=== PATIENT | female | born 1965 | race Caucasian/White ===

== ENCOUNTER → 2016-10-17 | Outpatient (CLI) | payer OTHER ==
[~2016-10-17] MED LIST: ALBU2.5V NPPB; DOXY100T PO; GLIM2TAB2 PO; PRED20TA PO
== END | disposition home or self-care (01) ==
LOC: CFH 10:36
PROVIDERS: ATTEND Family Medicine
DX: Z12.31 Encounter for screening mammogram for malignant neoplasm of breast (principal)
CPT/HCPCS: 77063; G0202

== ENCOUNTER 2017-02-18 19:24 | Inpatient (IN) | payer OTHER ==
[~2017-02-18] VITALS: Ht 165.1 cm; Wt 113.0 kg
[2017-02-18] MEDS ORDERED: SODIUM CHLORIDE FLUSH 10ML SYR IVF ONE (20:00)
[2017-02-18] MEDS ORDERED: ALBUTEROL/IPRATROPIUM 2.5MG/0.5MG, 3 ML ONE (20:14)
[2017-02-18 20:30] LABS: HEMOGLOBIN 17.9 g/dL (11.7-16.4); WHITE BLOOD COUNT 7.9 x10^3/uL (3.4-10)
[2017-02-18] MEDS ORDERED: ALBUTEROL/IPRATROPIUM 2.5MG/0.5MG, 3 ML NPPB ONE (20:30)
[2017-02-18] MEDS ORDERED: ASPI325T17 PO (20:31)
[2017-02-18] MEDS ORDERED: GLIM4TAB2 PO (20:31)
[2017-02-18 20:39] LABS: BLOOD UREA NITROGEN 11 mg/dL (7-18)
[2017-02-18 20:44] LABS: ASPARTATE AMINO TRANSFERASE 16 U/L (15-37)
[2017-02-18 20:46] LABS: IS PT STATUS REG ER OR PRE ER? YES
[2017-02-18] MEDS ORDERED: OMNIPAQUE 350 MG/ML, 100ML BOTTLE ONE (21:31)
[2017-02-18] MEDS ORDERED: GUAIFENESIN/DM 200-20MG, 10ML UDC PO PRN (22:30)
[2017-02-18] MEDS ORDERED: ACETAMINOPHEN 650 MG SUPP PR PRN (22:30)
[2017-02-18] MEDS: ALBUTEROL/IPRATROPIUM 2.5MG/0.5MG, 3 ML NPPB SCH (23:00)
[2017-02-18 23:45] VITALS: BP 127/84
[2017-02-19] MEDS ORDERED: LEVOFLOXACIN/PMX 750MG/150ML 150 ML IVPB SCH
[2017-02-19] MEDS: ENOXAPARIN 40 MG/0.4 ML SQ SCH ×2 (00:23→22:50)
[2017-02-19] MEDS: methylPREDNISolone SOD SUCC 40 MG/ML IVPush SCH ×3 (00:23→16:30)
[2017-02-19 01:30] LABS: RAPID INFLUENZA B Negative (Negative)
[2017-02-19 01:32] LABS: RAPID INFLUENZA A POSITIVE (Negative)
[2017-02-19] MEDS: OSELTAMIVIR 75 MG CAPSULE PO SCH ×3 (02:01→22:07)
[2017-02-19] MEDS: ALBUTEROL/IPRATROPIUM 2.5MG/0.5MG, 3 ML NPPB SCH ×6 (03:15→23:00)
[2017-02-19 03:31] VITALS: BP 118/60
[2017-02-19 03:57] LABS: ABG COLLECTION SITE LEFT RADIAL; COLLATERAL CIRCULATION TESTING NORMAL
[2017-02-19 07:53] VITALS: BP 119/74
[2017-02-19] MEDS: SODIUM CHLORIDE FLUSH 10ML SYR IVF SCH ×2 (09:59→21:00)
[2017-02-19] MEDS: INSULIN ASPART 100 UNITS/ML, PEN SQ-INSULIN SCH ×4 (10:00→22:49)
[2017-02-19] MEDS: CEFTRIAXONE PMX 1GM/50ML 50 ML IV SCH (11:52)
[2017-02-19] MEDS: GUAIFENESIN ER 600 MG TABLET PO SCH (12:12)
[2017-02-19] MEDS: DOXYCYCLINE 100 MG in DEXTROSE 5% 250 ML IV SCH (12:54)
[2017-02-19 14:25] VITALS: BP 134/77
[2017-02-19 21:00] VITALS: BP 144/83
[2017-02-20] MEDS: DOXYCYCLINE 100 MG in DEXTROSE 5% 250 ML IV SCH ×2 (00:22→13:12)
[2017-02-20] MEDS: methylPREDNISolone SOD SUCC 40 MG/ML IVPush SCH ×3 (00:25→16:24)
[2017-02-20 01:09] VITALS: BP 146/71
[2017-02-20] MEDS: ALBUTEROL/IPRATROPIUM 2.5MG/0.5MG, 3 ML NPPB SCH ×8 (03:00→23:08)
[2017-02-20 05:51] LABS: BLOOD UREA NITROGEN 15 mg/dL (7-18)
[2017-02-20 05:59] LABS: HEMATOCRIT 48.8 % (34.6-47.8); WHITE BLOOD COUNT 10.3 x10^3/uL (3.4-10)
[2017-02-20 07:48] VITALS: BP 111/75
[2017-02-20] MEDS: OSELTAMIVIR 75 MG CAPSULE PO SCH ×2 (08:22→21:04)
[2017-02-20] MEDS: SODIUM CHLORIDE FLUSH 10ML SYR IVF SCH ×2 (08:22→21:04)
[2017-02-20] MEDS: GUAIFENESIN ER 600 MG TABLET PO SCH ×2 (08:22→21:03)
[2017-02-20] MEDS: INSULIN ASPART 100 UNITS/ML, PEN SQ-INSULIN SCH ×4 (08:27→21:17)
[2017-02-20] MEDS ORDERED: ACETAMINOPHEN 325 MG TABLET PO PRN (09:00)
[2017-02-20] MEDS: CEFTRIAXONE PMX 1GM/50ML 50 ML IV SCH (11:20)
[2017-02-20 12:34] VITALS: BP 133/77
[2017-02-20 18:50] VITALS: BP 130/71
[2017-02-20] MEDS: ENOXAPARIN 40 MG/0.4 ML SQ SCH (21:17)
[2017-02-21] MEDS: methylPREDNISolone SOD SUCC 40 MG/ML IVPush SCH ×3 (00:29→16:30)
[2017-02-21] MEDS: DOXYCYCLINE 100 MG in DEXTROSE 5% 250 ML IV SCH ×2 (00:29→12:30)
[2017-02-21 03:05] VITALS: BP 96/67
[2017-02-21] MEDS: ALBUTEROL/IPRATROPIUM 2.5MG/0.5MG, 3 ML NPPB SCH ×4 (03:11→20:17)
[2017-02-21 06:28] VITALS: BP 127/74
[2017-02-21] MEDS: INSULIN ASPART 100 UNITS/ML, PEN SQ-INSULIN SCH ×4 (07:38→21:56)
[2017-02-21] MEDS: GUAIFENESIN ER 600 MG TABLET PO SCH ×2 (08:49→21:56)
[2017-02-21] MEDS: OSELTAMIVIR 75 MG CAPSULE PO SCH ×2 (08:49→21:56)
[2017-02-21] MEDS: SODIUM CHLORIDE FLUSH 10ML SYR IVF SCH ×2 (08:50→21:56)
[2017-02-21] MEDS: FLUTICASONE/VILANTEROL 100-25MCG/INH INH SCH (09:00)
[2017-02-21] MEDS: CEFTRIAXONE PMX 1GM/50ML 50 ML IV SCH (12:10)
[2017-02-21 13:08] VITALS: BP 126/71
[2017-02-21 20:11] VITALS: BP 146/87
[2017-02-21] MEDS: MONTELUKAST 10 MG TABLET PO SCH (21:56)
[2017-02-21] MEDS: ENOXAPARIN 40 MG/0.4 ML SQ SCH (21:57)
[2017-02-22] MEDS: DOXYCYCLINE 100 MG in DEXTROSE 5% 250 ML IV SCH ×2 (00:31→12:48)
[2017-02-22] MEDS: methylPREDNISolone SOD SUCC 40 MG/ML IVPush SCH ×2 (00:32→09:01)
[2017-02-22] MEDS: ALBUTEROL/IPRATROPIUM 2.5MG/0.5MG, 3 ML NPPB SCH ×4 (03:00→19:46)
[2017-02-22 03:32] VITALS: BP 118/72
[2017-02-22 05:42] LABS: BLOOD UREA NITROGEN 16 mg/dL (7-18)
[2017-02-22 06:15] LABS: HEMATOCRIT 49.9 % (34.6-47.8); HEMOGLOBIN 17.1 g/dL (11.7-16.4); WHITE BLOOD COUNT 15.4 x10^3/uL (3.4-10)
[2017-02-22 08:10] VITALS: BP 133/76
[2017-02-22] MEDS: FLUTICASONE/VILANTEROL 100-25MCG/INH INH SCH (09:00)
[2017-02-22] MEDS: INSULIN ASPART 100 UNITS/ML, PEN SQ-INSULIN SCH ×4 (09:00→22:48)
[2017-02-22] MEDS: OSELTAMIVIR 75 MG CAPSULE PO SCH ×2 (09:02→20:21)
[2017-02-22] MEDS: GUAIFENESIN ER 600 MG TABLET PO SCH ×2 (09:02→20:19)
[2017-02-22] MEDS: SODIUM CHLORIDE FLUSH 10ML SYR IVF SCH ×2 (09:02→20:21)
[2017-02-22] MEDS: CEFTRIAXONE PMX 1GM/50ML 50 ML IV SCH (11:41)
[2017-02-22 12:18] VITALS: BP 130/75
[2017-02-22] MEDS: MONTELUKAST 10 MG TABLET PO SCH (20:21)
[2017-02-22 20:40] VITALS: BP 130/79
[2017-02-22] MEDS: ENOXAPARIN 40 MG/0.4 ML SQ SCH (22:52)
[2017-02-23] MEDS: DOXYCYCLINE 100 MG in DEXTROSE 5% 250 ML IV SCH ×2 (01:25→12:03)
[2017-02-23 01:33] VITALS: BP 128/81
[2017-02-23] MEDS: ALBUTEROL/IPRATROPIUM 2.5MG/0.5MG, 3 ML NPPB SCH (01:55)
[2017-02-23 05:48] LABS: HEMATOCRIT 48.8 % (34.6-47.8); WHITE BLOOD COUNT 14.6 x10^3/uL (3.4-10)
[2017-02-23 05:53] LABS: BLOOD UREA NITROGEN 15 mg/dL (7-18)
[2017-02-23 06:44] VITALS: BP 119/68
[2017-02-23] MEDS: INSULIN ASPART 100 UNITS/ML, PEN SQ-INSULIN SCH ×2 (07:47→11:33)
[2017-02-23] MEDS: SODIUM CHLORIDE FLUSH 10ML SYR IVF SCH (08:54)
[2017-02-23] MEDS: OSELTAMIVIR 75 MG CAPSULE PO SCH (08:54)
[2017-02-23] MEDS: FLUTICASONE/VILANTEROL 100-25MCG/INH INH SCH (08:54)
[2017-02-23] MEDS: GUAIFENESIN ER 600 MG TABLET PO SCH (08:54)
[2017-02-23] MEDS ORDERED: ALBUTEROL/IPRATROPIUM 2.5MG/0.5MG, 3 ML NPPB PRN (10:00)
[2017-02-23] MEDS: CEFTRIAXONE PMX 1GM/50ML 50 ML IV SCH (11:24)
[2017-02-23] MEDS ORDERED: PRED20TA PO (12:45)
[2017-02-23] MEDS ORDERED: GUAI600T31 PO (12:45)
[2017-02-23] MEDS ORDERED: DOXY100T PO (12:45)
[2017-02-23] MEDS ORDERED: CEFD300C37 PO (12:45)
[2017-02-23] MEDS ORDERED: FLUT1AER INH (12:45)
[2017-02-23] MEDS ORDERED: ALBU18HF INH (12:45)
[2017-02-23] MEDS ORDERED: MONT10TA9 PO (12:45)
[2017-02-23 13:23] VITALS: BP 131/85
[2017-02-23] MEDS ORDERED: FLU VACC QS2017-18 (36MOS+) UP/PF 0.5 ML IM-VACC ONE (14:00)
== END 2017-02-23 14:40 | disposition home or self-care (01) | DRG 189 ==
LOC: ED 21:59 → EDIP 22:28 → 4NOR 23:34
PROVIDERS: ADMIT Family Medicine; ATTEND Family Medicine
DX: J96.01 Acute respiratory failure with hypoxia (principal); D75.1 Secondary polycythemia; J44.0 Chronic obstructive pulmonary disease with (acute) lower respiratory infection; J44.1 Chronic obstructive pulmonary disease with (acute) exacerbation; E11.65 Type 2 diabetes mellitus with hyperglycemia; F17.210 Nicotine dependence, cigarettes, uncomplicated; J10.1 Influenza due to other identified influenza virus with other respiratory manifestations; J20.9 Acute bronchitis, unspecified; T38.0X5A Adverse effect of glucocorticoids and synthetic analogues, initial encounter; Y92.89 Other specified places as the place of occurrence of the external cause
CPT/HCPCS: 36415; 36600; 71010; 71275; 80048; 80053; 81003; 82803; 82947; 82962; 83605; 83880; 84145; 84484; 85025; 87040; 87400; 90686; 93005; 94640; 99285; J0696; J1650; J1815; J1956; J7060; J7620; Q9967; J2920; J7512

== ENCOUNTER → 2018-04-01 | Outpatient (CLI) | payer OTHER ==
[~2018-04-01] MED LIST changes: +ALBU18HF INH; +ASPI325T17 PO; +CEFD300C37 PO; +FLUT1AER INH; +GLIM4TAB2 PO; +GUAI600T31 PO; +MONT10TA9 PO
[2018-04-01 13:01] LABS: CHLORIDE 99 mmol/L (98-107)
[2018-04-01 13:13] LABS: ALANINE AMINOTRANSFERASE 33 U/L (12-78); ALBUMIN 4.1 g/dL (3.4-5.0); ALKALINE PHOSPHATASE 156 U/L (45-117); ANION GAP 8 mmol/L (5-15); BILIRUBIN,TOTAL 0.5 mg/dL (0.2-1.0); CALCIUM 9.1 mg/dL (8.5-10.1); CHOL/HDL RATIO 6.1; CHOLESTEROL, TOTAL 212 mg/dL (140-239); CREATININE 0.84 mg/dL (0.55-1.02); HDL CHOL % 17 % (28-40); HDL CHOLESTEROL (DIRECT) 35 mg/dL (40-60); LDL CHOLESTEROL,CALCULATED 104 mg/dL (54-169); TOTAL PROTEIN 7.4 g/dL (6.4-8.2); TRIGLYCERIDES 363 mg/dL (50-200); VLDL CHOLESTEROL 73 mg/dL (0-25)
[2018-04-01 13:59] LABS: HEMOGLOBIN A1C 9.9 % (4.2-6.3)
== END | disposition home or self-care (01) ==
LOC: LAB 12:19
PROVIDERS: ATTEND Family Medicine
DX: E11.65 Type 2 diabetes mellitus with hyperglycemia (principal); E78.2 Mixed hyperlipidemia
CPT/HCPCS: 36415; 80053; 80061; 82043; 82570; 83036

== ENCOUNTER → 2018-04-21 | Outpatient (CLI) | payer OTHER | END | disposition home or self-care (01) | LOC: CFH 14:08 | PROVIDERS: ATTEND Nurse Practitioner Critical Care Medicine | DX: Z12.31 Encounter for screening mammogram for malignant neoplasm of breast (principal); M48.061 Spinal stenosis, lumbar region without neurogenic claudication; M51.36 Other intervertebral disc degeneration, lumbar region | CPT/HCPCS: 72110; 72148; 77063; 77067 ==

== ENCOUNTER → 2018-07-16 | Outpatient (CLI) | payer OTHER ==
[~2018-07-16] MED LIST changes: +LISI-170 PO; +METF1000 PO; +PRAV20TA2 PO
[2018-07-16 15:22] LABS: BASOPHILS # (AUTO) 0.06 x10^3/uL (0-0.1); BASOPHILS % (AUTO) 0 % (0-1); EOSINOPHILS % (AUTO) 1 % (1-7); LYMPHOCYTES # (AUTO) 3.35 x10^3/uL (1-3.4); LYMPHOCYTES % (AUTO) 23 % (22-44); MD NO; MEAN CORPUSCULAR HEMOGLOBIN 31.7 pg (27.0-34.8); MEAN CORPUSCULAR HGB CONC 34.1 g/dL (32.4-35.8); MEAN PLATELET VOLUME 8.9 fL (7.4-10.4); MONOCYTES # (AUTO) 0.64 x10^3/uL (0.2-0.8); MONOCYTES % (AUTO) 4 % (2-9); NEUTROPHILS # (AUTO) 10.55 x10^3/uL (1.8-6.8); NEUTROPHILS % (AUTO) 71 % (42-75); PLATELET COUNT 191 x10^3/uL (130-400); RED CELL DISTRIBUTION WIDTH 14.1 % (9.6-15.2)
[2018-07-16 15:23] LABS: MICROSCOPIC NOT IND
[2018-07-16 15:25] LABS: CULTURE INDICATED? NO
[2018-07-16 15:35] LABS: ALANINE AMINOTRANSFERASE 42 U/L (12-78); ALBUMIN 4.2 g/dL (3.4-5.0); ANION GAP 6 mmol/L (5-15); CALCIUM 9.5 mg/dL (8.5-10.1); CHLORIDE 102 mmol/L (98-107); CREATININE 0.85 mg/dL (0.55-1.02)
[2018-07-16 15:36] LABS: INTERNATIONAL NORMALIZED RATIO 1.03 (0.93-1.1); PROTHROMBIN TIME 10.8 Seconds (9.6-11.5)
[2018-07-16 15:37] LABS: ALKALINE PHOSPHATASE 119 U/L (45-117); BILIRUBIN,TOTAL 0.3 mg/dL (0.2-1.0); TOTAL PROTEIN 7.3 g/dL (6.4-8.2)
== END | disposition home or self-care (01) ==
LOC: STAR 14:17
PROVIDERS: ATTEND Neurological Surgery
DX: Z01.818 Encounter for other preprocedural examination (principal); I51.7 Cardiomegaly; M43.10 Spondylolisthesis, site unspecified; Z87.891 Personal history of nicotine dependence
CPT/HCPCS: 36415; 80053; 81003; 85025; 85610; 85730; 93005

== ENCOUNTER → 2018-07-27 | Outpatient (CLI) | payer OTHER ==
[2018-07-27 16:02] LABS: BASOPHILS # (AUTO) 0.05 x10^3/uL (0-0.1); BASOPHILS % (AUTO) 1 % (0-1); EOSINOPHILS # (AUTO) 0.15 x10^3/uL (0-0.4); EOSINOPHILS % (AUTO) 1 % (1-7); LYMPHOCYTES # (AUTO) 2.69 x10^3/uL (1-3.4); LYMPHOCYTES % (AUTO) 24 % (22-44); MD NO; MEAN CORPUSCULAR HEMOGLOBIN 31.8 pg (27.0-34.8); MEAN CORPUSCULAR HGB CONC 34.1 g/dL (32.4-35.8); MEAN CORPUSCULAR VOLUME 93.3 fL (80-100); MEAN PLATELET VOLUME 8.9 fL (7.4-10.4); MONOCYTES # (AUTO) 0.52 x10^3/uL (0.2-0.8); MONOCYTES % (AUTO) 5 % (2-9); NEUTROPHILS # (AUTO) 7.68 x10^3/uL (1.8-6.8); NEUTROPHILS % (AUTO) 69 % (42-75); PLATELET COUNT 172 x10^3/uL (130-400); RED BLOOD COUNT 5.56 x10^6/uL (3.82-5.3); RED CELL DISTRIBUTION WIDTH 14.5 % (9.6-15.2)
== END | disposition home or self-care (01) ==
LOC: LAB 15:40
PROVIDERS: ATTEND Neurological Surgery
DX: M54.16 Radiculopathy, lumbar region (principal)
CPT/HCPCS: 36415; 85025

== ENCOUNTER 2018-07-30 06:23 | Inpatient (IN) | payer OTHER ==
[~2018-07-30] VITALS: Ht 162.6 cm; Wt 122.0 kg
[2018-07-30] MEDS ORDERED: LACTATED RINGERS 1,000 ML IV SCH (06:53)
[2018-07-30] MEDS ORDERED: FENTANYL PF 250 MCG/5ML ONE (07:36)
[2018-07-30] MEDS ORDERED: MIDAZOLAM 1 MG/ML, 2ML ONE (07:36)
[2018-07-30] MEDS ORDERED: ACETAMINOPHEN 500 MG TABLET PO ONE (09:30)
[2018-07-30] MEDS ORDERED: OxyconTIN ER 20 MG TAB.ER PO ONE (09:30)
[2018-07-30] MEDS ORDERED: GABAPENTIN 300 MG CAPSULE PO ONE (09:30)
[2018-07-30] MEDS ORDERED: FAMOTIDINE 20 MG TABLET PO ONE (09:30)
[2018-07-30] MEDS ORDERED: ACETAMINOPHEN 500 MG TABLET ONE (09:33)
[2018-07-30] MEDS ORDERED: FAMOTIDINE 20 MG TABLET ONE (09:33)
[2018-07-30] MEDS ORDERED: GABAPENTIN 300 MG CAPSULE ONE (09:34)
[2018-07-30] MEDS ORDERED: OxyconTIN ER 20 MG TAB.ER ONE (09:35)
[2018-07-30] MEDS ORDERED: BUPIVACAINE/PF 0.5% ONE (09:37)
[2018-07-30] MEDS ORDERED: VANCOMYCIN 1,000 MG ONE (09:38)
[2018-07-30] MEDS ORDERED: THROMBIN 5,000 UNIT VIAL TP ONE (09:38)
[2018-07-30] MEDS ORDERED: EPINEPHRINE 1 MG/ML, 1ML ONE (09:38)
[2018-07-30] MEDS ORDERED: BACITRACIN 50,000 UNIT ONE (09:38)
[2018-07-30] MEDS ORDERED: CEFAZOLIN 1,000 MG ONE ×2 (09:49)
[2018-07-30] MEDS ORDERED: PROPOFOL 10 MG/ML, 20ML ONE (10:16)
[2018-07-30] MEDS ORDERED: ROCURONIUM 10MG/ML,5ML ONE ×2 (10:16)
[2018-07-30] MEDS ORDERED: ONDANSETRON 2MG/ML, 2ML ONE ×2 (10:17→11:33)
[2018-07-30] MEDS ORDERED: DEXAMETHASONE 4 MG/ML, 1ML ONE (10:17)
[2018-07-30] MEDS ORDERED: OXYcodone 5 MG/5 ML ORAL.SOL UDC PO PRN (10:30)
[2018-07-30] MEDS ORDERED: hydrALAzine 20 MG/ML, 1ML IV PRN (10:30)
[2018-07-30] MEDS ORDERED: ONDANSETRON 2MG/ML, 2ML IV PRN ×2 (10:30→14:30)
[2018-07-30] MEDS ORDERED: FENTANYL PF 100 MCG/2ML IV PRN (10:30)
[2018-07-30] MEDS ORDERED: DIAZEPAM 5 MG/ML, 2ML IVPush PRN (10:30)
[2018-07-30] MEDS ORDERED: MEPERIDINE/PF 25MG/0.5ML IVPush PRN (10:30)
[2018-07-30] MEDS ORDERED: PROMETHAZINE 25 MG/ML, 1ML IV PRN (10:30)
[2018-07-30] MEDS ORDERED: LABETALOL 5MG/ML, 20ML IV PRN ×2 (10:30→14:30)
[2018-07-30] MEDS ORDERED: GLYCOPYRROLATE 0.2MG/1ML, 5ML ONE (11:44)
[2018-07-30] MEDS ORDERED: NEOSTIGMINE 1 MG/ML, 10ML ONE (11:44)
[2018-07-30] MEDS ORDERED: HYDROmorphone 2 MG/ML, 1ML ONE (12:52)
[2018-07-30] MEDS: HYDROmorphone 2 MG/ML, 1ML IVPush PRN ×2 (12:55→13:15)
[2018-07-30 14:15] VITALS: BP 103/66
[2018-07-30] MEDS ORDERED: DIPHENHYDRAMINE 50 MG/ML, 1ML IM PRN (14:30)
[2018-07-30] MEDS ORDERED: MAGNESIUM HYDROXIDE 8%, 30ML UDC PO PRN (14:30)
[2018-07-30] MEDS ORDERED: HYDROcodone/APAP 5/325 TABLET PO PRN (14:30)
[2018-07-30] MEDS ORDERED: PROMETHAZINE 25 MG/ML, 1ML IM PRN (14:30)
[2018-07-30] MEDS ORDERED: BISACODYL 10 MG SUPP PR PRN (14:30)
[2018-07-30] MEDS ORDERED: morphine SULFATE 10 MG/ML, 1ML IV PRN (14:30)
[2018-07-30] MEDS ORDERED: DIPHENHYDRAMINE 50 MG CAPSULE PO PRN (14:30)
[2018-07-30] MEDS: INSULIN REGULAR 100 UNITS/ML, 3ML VIAL SQ-INSULIN SCH ×2 (17:18→21:48)
[2018-07-30] MEDS: CEFAZOLIN PMX 1GM/50ML 50 ML IVPB SCH (17:19)
[2018-07-30] MEDS: NS + 20MEQ KCL 1,000 ML IV SCH (17:19)
[2018-07-30] MEDS: OXYcodone/APAP 5/325MG TABLET PO PRN (17:35)
[2018-07-30 19:32] VITALS: BP 144/83
[2018-07-30] MEDS: PRAVASTATIN 20 MG TABLET PO SCH (21:32)
[2018-07-31 00:26] VITALS: BP 109/68
[2018-07-31] MEDS: CEFAZOLIN PMX 1GM/50ML 50 ML IVPB SCH (02:23)
[2018-07-31] MEDS: NS + 20MEQ KCL 1,000 ML IV SCH ×3 (03:00→15:40)
[2018-07-31 04:03] VITALS: BP 147/76
[2018-07-31 05:30] LABS: BASOPHILS # (AUTO) 0.04 x10^3/uL (0-0.1); BASOPHILS % (AUTO) 0 % (0-1); EOSINOPHILS # (AUTO) 0.01 x10^3/uL (0-0.4); EOSINOPHILS % (AUTO) 0 % (1-7); LYMPHOCYTES # (AUTO) 1.45 x10^3/uL (1-3.4); LYMPHOCYTES % (AUTO) 10 % (22-44); MD NO; MEAN CORPUSCULAR HEMOGLOBIN 32.4 pg (27.0-34.8); MEAN CORPUSCULAR HGB CONC 34.6 g/dL (32.4-35.8); MEAN CORPUSCULAR VOLUME 93.7 fL (80-100); MEAN PLATELET VOLUME 9.1 fL (7.4-10.4); MONOCYTES # (AUTO) 0.82 x10^3/uL (0.2-0.8); MONOCYTES % (AUTO) 6 % (2-9); NEUTROPHILS # (AUTO) 12.45 x10^3/uL (1.8-6.8); NEUTROPHILS % (AUTO) 84 % (42-75); PLATELET COUNT 115 x10^3/uL (130-400); RED BLOOD COUNT 4.81 x10^6/uL (3.82-5.3); RED CELL DISTRIBUTION WIDTH 14.6 % (9.6-15.2)
[2018-07-31 05:38] LABS: CHLORIDE 102 mmol/L (98-107)
[2018-07-31 05:48] LABS: ANION GAP 5 mmol/L (5-15); CALCIUM 8.5 mg/dL (8.5-10.1); CREATININE 0.67 mg/dL (0.55-1.02)
[2018-07-31] MEDS: LISINOPRIL 20 MG TABLET PO SCH (07:33)
[2018-07-31] MEDS: metFORMIN 500 MG TABLET PO SCH (07:33)
[2018-07-31] MEDS: GLIMEPIRIDE 4 MG TABLET PO SCH (07:33)
[2018-07-31] MEDS: INSULIN REGULAR 100 UNITS/ML, 3ML VIAL SQ-INSULIN SCH ×4 (07:33→20:46)
[2018-07-31] MEDS: SENNA/DOCUSATE TABLET PO SCH (07:33)
[2018-07-31 08:11] VITALS: BP 125/77
[2018-07-31] MEDS: OXYcodone/APAP 5/325MG TABLET PO PRN ×2 (10:18→19:42)
[2018-07-31 15:00] VITALS: BP 81/55
[2018-07-31] MEDS: TIZANIDINE 4MG TABLET PO PRN (15:44)
[2018-07-31 15:45] VITALS: BP 93/59
[2018-07-31 19:53] VITALS: BP 95/64
[2018-07-31] MEDS: PRAVASTATIN 20 MG TABLET PO SCH (20:39)
[2018-08-01] MEDS: OXYcodone/APAP 5/325MG TABLET PO PRN ×3 (00:08→19:08)
[2018-08-01 00:11] VITALS: BP 99/63
[2018-08-01] MEDS: TIZANIDINE 4MG TABLET PO PRN ×2 (02:30→10:50)
[2018-08-01 05:01] LABS: MEAN CORPUSCULAR HEMOGLOBIN 32.1 pg (27.0-34.8); MEAN CORPUSCULAR HGB CONC 34.2 g/dL (32.4-35.8); MEAN CORPUSCULAR VOLUME 93.7 fL (80-100); RED BLOOD COUNT 4.43 x10^6/uL (3.82-5.3); RED CELL DISTRIBUTION WIDTH 14.4 % (9.6-15.2)
[2018-08-01 05:03] LABS: ANION GAP 3 mmol/L (5-15); CALCIUM 8.4 mg/dL (8.5-10.1); CHLORIDE 101 mmol/L (98-107)
[2018-08-01 05:25] LABS: BASOPHILS # (AUTO) 0.06 x10^3/uL (0-0.1); BASOPHILS % (AUTO) 0 % (0-1); EOSINOPHILS # (AUTO) 0.05 x10^3/uL (0-0.4); EOSINOPHILS % (AUTO) 0 % (1-7); LYMPHOCYTES # (AUTO) 1.38 x10^3/uL (1-3.4); LYMPHOCYTES % (AUTO) 9 % (22-44); MD SCAN; MEAN PLATELET VOLUME 8.9 fL (7.4-10.4); MONOCYTES # (AUTO) 1.04 x10^3/uL (0.2-0.8); MONOCYTES % (AUTO) 7 % (2-9); NEUTROPHILS # (AUTO) 12.16 x10^3/uL (1.8-6.8); NEUTROPHILS % (AUTO) 83 % (42-75); PLATELET COUNT 98 x10^3/uL (130-400)
[2018-08-01] MEDS: INSULIN REGULAR 100 UNITS/ML, 3ML VIAL SQ-INSULIN SCH ×4 (06:53→20:34)
[2018-08-01 08:22] VITALS: BP 108/74
[2018-08-01] MEDS: metFORMIN 500 MG TABLET PO SCH (08:41)
[2018-08-01] MEDS: SENNA/DOCUSATE TABLET PO SCH (08:41)
[2018-08-01] MEDS: GLIMEPIRIDE 4 MG TABLET PO SCH (08:41)
[2018-08-01] MEDS: LISINOPRIL 20 MG TABLET PO SCH (08:42)
[2018-08-01] MEDS: NS + 20MEQ KCL 1,000 ML IV SCH ×2 (08:43→18:52)
[2018-08-01 13:46] VITALS: BP 90/58
[2018-08-01 18:47] VITALS: BP 96/66
[2018-08-01] MEDS: PRAVASTATIN 20 MG TABLET PO SCH (20:26)
[2018-08-02 00:58] VITALS: BP 118/78
[2018-08-02] MEDS: OXYcodone/APAP 5/325MG TABLET PO PRN ×3 (01:02→11:43)
[2018-08-02] MEDS: NS + 20MEQ KCL 1,000 ML IV SCH (02:05)
[2018-08-02] MEDS: TIZANIDINE 4MG TABLET PO PRN (05:39)
[2018-08-02] MEDS: INSULIN REGULAR 100 UNITS/ML, 3ML VIAL SQ-INSULIN SCH ×2 (06:12→11:37)
[2018-08-02 08:11] VITALS: BP 99/67
[2018-08-02] MEDS: LISINOPRIL 20 MG TABLET PO SCH (08:20)
[2018-08-02] MEDS: SENNA/DOCUSATE TABLET PO SCH (08:21)
[2018-08-02] MEDS: metFORMIN 500 MG TABLET PO SCH (08:21)
[2018-08-02] MEDS: GLIMEPIRIDE 4 MG TABLET PO SCH (08:21)
[2018-08-02 08:22] VITALS: BP 92/56
[2018-08-02] MEDS ORDERED: OXYC-307 PO (10:23)
[2018-08-02] MEDS ORDERED: TIZA4TAB PO (10:25)
[2018-08-02] MEDS ORDERED: SENN-92 PO (10:27)
[2018-08-02] MEDS ORDERED: BISA10SU54 PR (10:28)
[2018-08-02 13:00] VITALS: BP_SYST 108; BP_SYST 138; BP_DIAS 62
== END 2018-08-02 13:50 | disposition home or self-care (01) | DRG 454 ==
LOC: ORIP 06:23 → 4NOR 14:07
PROVIDERS: ADMIT Neurological Surgery; ATTEND Neurological Surgery
PROC: 0SB20ZZ Excision of Lumbar Vertebral Disc, Open Approach (ICD-10-PCS; 2018-07-30)
PROC: 01NB0ZZ Release Lumbar Nerve, Open Approach (ICD-10-PCS; 2018-07-30)
PROC: 0SG0071 Fusion of Lumbar Vertebral Joint with Autologous Tissue Substitute, Posterior Approach, Posterior Column, Open Approach (ICD-10-PCS; 2018-07-30)
PROC: 3E0U0GB Introduction of Recombinant Bone Morphogenetic Protein into Joints, Open Approach (ICD-10-PCS; 2018-07-30)
PROC: 0SG00AJ Fusion of Lumbar Vertebral Joint with Interbody Fusion Device, Posterior Approach, Anterior Column, Open Approach (ICD-10-PCS; principal; 2018-07-30 09:00)
DX: M48.061 Spinal stenosis, lumbar region without neurogenic claudication (principal); Z68.42 Body mass index [BMI] 45.0-49.9, adult; E11.9 Type 2 diabetes mellitus without complications; M43.16 Spondylolisthesis, lumbar region; E66.9 Obesity, unspecified; M54.16 Radiculopathy, lumbar region; F17.210 Nicotine dependence, cigarettes, uncomplicated; Z79.4 Long term (current) use of insulin; Z90.49 Acquired absence of other specified parts of digestive tract; Z90.710 Acquired absence of both cervix and uterus
CPT/HCPCS: 36415; 72100; S0020; 80048; 82962; 85025; C1713; C1776; G0378; J0171; J0690; J1100; J1170; J1815; J2250; J2270; J2405; J2704; J2710; J3010; J3370; J3480; C1762; J7120

== ENCOUNTER 2018-12-02 17:48 | Inpatient (IN) | payer OTHER ==
[~2018-12-02] VITALS: Ht 162.6 cm; Wt 116.8 kg
[~2018-12-02 17:48] MED LIST changes: +BISA10SU54 PR; +OXYC-307 PO; +SENN-92 PO; +TIZA4TAB2 PO
--- NOTE | 2018-12-02 18:25 | NUR ---
Pt resting on gurney with bedrails up x 2. Pt c/o "nasal congestion, fatigue, and cough since Friday." Pt connected to NIBP cuff, continous pulse ox, and cardiac exercise specialist. Call light within reach. Pt is AOX4, labored respirations with accesory muslce use, and is on 5 L of oxygen via NC. Pt does not wear oxygen at home. NADN. No needs expressed. waste minimization technician at bedside for EKG.
[2018-12-02] MEDS ORDERED: ALBUTEROL/IPRATROPIUM 2.5MG/0.5MG, 3 ML NPPB SCH (18:30)
[2018-12-02] MEDS ORDERED: SODIUM CHLORIDE FLUSH 10ML SYR IVF ONE (18:30)
[2018-12-02] MEDS ORDERED: methylPREDNISolone SOD SUCC 125 MG/2 ML ONE (18:32)
--- NOTE | 2018-12-02 18:42 | NUR ---
TASK RN: PT PIV PLACED AND BLOOD DRAWN.
[2018-12-02] MEDS: methylPREDNISolone SOD SUCC 125 MG/2 ML IV ONE ×2 (18:43→19:11)
[2018-12-02 18:59] LABS: MEAN CORPUSCULAR HEMOGLOBIN 31.5 pg (27.0-34.8); MEAN CORPUSCULAR HGB CONC 32.7 g/dL (32.4-35.8); MEAN CORPUSCULAR VOLUME 96.5 fL (80-100); MEAN PLATELET VOLUME 8.9 fL (7.4-10.4); PLATELET COUNT 185 x10^3/uL (130-400); RED BLOOD COUNT 5.04 x10^6/uL (3.82-5.3); RED CELL DISTRIBUTION WIDTH 15.1 % (9.6-15.2)
[2018-12-02 19:06] LABS: ALBUMIN 3.3 g/dL (3.4-5.0); CALCIUM 8.9 mg/dL (8.5-10.1)
[2018-12-02 19:09] LABS: ALANINE AMINOTRANSFERASE 68 U/L (12-78); ALKALINE PHOSPHATASE 163 U/L (45-117); BILIRUBIN,TOTAL 0.8 mg/dL (0.2-1.0); CREATININE 0.71 mg/dL (0.55-1.02); TROPONIN I < 0.015 ng/mL (0.000-0.045)
--- NOTE | 2018-12-02 19:10 | NUR ---
Provided bedside report to HALEIGH Schroeder. All questions answered. NADN. No needs expressed. HALEIGH Schroeder to assume care of pt.
--- NOTE | 2018-12-02 19:10 | NUR ---
PIV placed infiltrated. Removed PIV with tip intact. Please see charting.
[2018-12-02 19:12] LABS: ANION GAP 6 mmol/L (5-15); CHLORIDE 98 mmol/L (98-107)
[2018-12-02 19:20] LABS: MD YES
[2018-12-02 19:22] LABS: BAND#(MANUAL) 0.74 x10^3/uL; BANDS%(MANUAL) 5 % (0-7); LYMPH#(MANUAL) 1.92 x10^3/uL (1-3.4); LYMPHS% (MANUAL) 13 % (22-44); METAMYELOCYTES# (MANUAL) 0.15 x10^3/uL (0-0); METAMYELOCYTES% (MANUAL) 1 % (0-1); MONOS#(MANUAL) 1.33 x10^3/uL (0.3-2.7); MONOS% (MANUAL) 9 % (2-9); MYELOCYTES# (MANUAL) 0.15 x10^3/uL (0-0); MYELOCYTES% (MANUAL) 1 % (0-0); NRBC % (MANUAL) 1 % (0-1); SEG#(MANUAL) 10.51 x10^3/uL (1.8-6.8); SEGS% (MANUAL) 71 % (42-75)
[2018-12-02 19:23] LABS: ANISOCYTOSIS 1+; POLYCHROMASIA 1+
[2018-12-02 19:24] LABS: <PLATELET ESTIMATE> ADEQUATE; <PLT MORPHOLOGY> NORMAL PLT MORPH; OVALOCYTES 1+
[2018-12-02] MEDS ORDERED: CEFOTETAN PMX 1GM/50ML 50 ML IV ONE (19:30)
[2018-12-02] MEDS ORDERED: VANCOMYCIN PER PHARMACY MC PRN (19:30)
[2018-12-02] MEDS ORDERED: CEFOTETAN PMX 1GM/50ML 50 ML ONE (19:38)
[2018-12-02] MEDS ORDERED: VANCOMYCIN 2,000 MG in SODIUM CHLORIDE 0.9% 500 ML IV ONE (20:00)
[2018-12-02] MEDS ORDERED: hydrALAzine 20 MG/ML, 1ML IVPush PRN (20:00)
[2018-12-02 20:18] VITALS: BP 142/85
[2018-12-02 20:43] LABS: HEMOGLOBIN A1C 9.6 % (4.2-6.3)
[2018-12-02] MEDS ORDERED: AZITHROMYCIN 500 MG TABLET PO ONE (21:00)
[2018-12-02] MEDS: PRAVASTATIN 20 MG TABLET PO SCH (21:05)
[2018-12-02] MEDS: ENOXAPARIN 30 MG/0.3 ML SQ SCH (21:06)
[2018-12-02] MEDS: GUAIFENESIN/COD200MG-20MG/10ML LIQUID PO PRN (21:06)
[2018-12-02] MEDS: INSULIN LISPRO 100 UNITS/ML, PEN SQ-INSULIN SCH (22:06)
[2018-12-02] MEDS: CEFTRIAXONE PMX 2GM/50ML 50 ML IV SCH (22:57)
[2018-12-03 03:10] VITALS: BP 112/67
[2018-12-03 06:09] LABS: BASOPHILS # (AUTO) 0.05 x10^3/uL (0-0.1); BASOPHILS % (AUTO) 0 % (0-1); EOSINOPHILS # (AUTO) 0.08 x10^3/uL (0-0.4); EOSINOPHILS % (AUTO) 1 % (1-7); LYMPHOCYTES # (AUTO) 1.27 x10^3/uL (1-3.4); LYMPHOCYTES % (AUTO) 8 % (22-44); MD NO; MEAN CORPUSCULAR HEMOGLOBIN 31.9 pg (27.0-34.8); MEAN CORPUSCULAR HGB CONC 32.6 g/dL (32.4-35.8); MONOCYTES # (AUTO) 0.21 x10^3/uL (0.2-0.8); MONOCYTES % (AUTO) 1 % (2-9); NEUTROPHILS # (AUTO) 13.63 x10^3/uL (1.8-6.8); NEUTROPHILS % (AUTO) 89 % (42-75); PLATELET COUNT 190 x10^3/uL (130-400); RED BLOOD COUNT 4.97 x10^6/uL (3.82-5.3); RED CELL DISTRIBUTION WIDTH 15.3 % (9.6-15.2)
[2018-12-03 06:16] LABS: CHLORIDE 97 mmol/L (98-107)
[2018-12-03 06:30] LABS: ALANINE AMINOTRANSFERASE 66 U/L (12-78); ALBUMIN 3.3 g/dL (3.4-5.0); ALKALINE PHOSPHATASE 167 U/L (45-117); ANION GAP 7 mmol/L (5-15); BILIRUBIN,TOTAL 0.7 mg/dL (0.2-1.0); CALCIUM 8.6 mg/dL (8.5-10.1); CREATININE 0.65 mg/dL (0.55-1.02)
[2018-12-03 07:33] VITALS: BP 117/78
[2018-12-03] MEDS: ENOXAPARIN 30 MG/0.3 ML SQ SCH (08:33)
[2018-12-03] MEDS: INSULIN LISPRO 100 UNITS/ML, PEN SQ-INSULIN SCH ×4 (09:03→21:01)
[2018-12-03] MEDS ORDERED: INSULIN GLARGINE 100 UNITS/ML, PEN SQ-INSULIN ONE (12:00)
[2018-12-03] MEDS: GUAIFENESIN/COD200MG-20MG/10ML LIQUID PO PRN (12:59)
[2018-12-03 14:42] VITALS: BP 118/77
[2018-12-03] MEDS: FUROSEMIDE 20 MG/2 ML IV SCH (16:31)
[2018-12-03 17:48] VITALS: BP 143/87
[2018-12-03 19:10] VITALS: BP 123/80
[2018-12-03] MEDS: PRAVASTATIN 20 MG TABLET PO SCH (21:00)
[2018-12-03] MEDS: AZITHROMYCIN 250 MG TABLET PO SCH (21:00)
[2018-12-03] MEDS: ENOXAPARIN 40 MG/0.4 ML SQ SCH (21:01)
[2018-12-03] MEDS: INSULIN GLARGINE 100 UNITS/ML, PEN SQ-INSULIN SCH (21:01)
[2018-12-03] MEDS ORDERED: ALBUTEROL/IPRATROPIUM 2.5MG/0.5MG, 3 ML ONE (21:45)
[2018-12-03] MEDS: ALBUTEROL/IPRATROPIUM 2.5MG/0.5MG, 3 ML NPPB PRN (21:51)
[2018-12-03] MEDS: CEFTRIAXONE PMX 2GM/50ML 50 ML IV SCH (23:01)
[2018-12-04 00:18] VITALS: BP 114/77
[2018-12-04 04:43] LABS: BASOPHILS # (AUTO) 0.02 x10^3/uL (0-0.1); BASOPHILS % (AUTO) 0 % (0-1); EOSINOPHILS % (AUTO) 1 % (1-7); LYMPHOCYTES # (AUTO) 2.23 x10^3/uL (1-3.4); LYMPHOCYTES % (AUTO) 17 % (22-44); MD NO; MEAN CORPUSCULAR HEMOGLOBIN 31.6 pg (27.0-34.8); MEAN CORPUSCULAR HGB CONC 32.7 g/dL (32.4-35.8); MEAN CORPUSCULAR VOLUME 96.5 fL (80-100); MEAN PLATELET VOLUME 8.5 fL (7.4-10.4); MONOCYTES # (AUTO) 0.67 x10^3/uL (0.2-0.8); MONOCYTES % (AUTO) 5 % (2-9); NEUTROPHILS # (AUTO) 10.19 x10^3/uL (1.8-6.8); NEUTROPHILS % (AUTO) 77 % (42-75); PLATELET COUNT 188 x10^3/uL (130-400); RED BLOOD COUNT 4.88 x10^6/uL (3.82-5.3); RED CELL DISTRIBUTION WIDTH 15.3 % (9.6-15.2)
[2018-12-04 04:48] LABS: CALCIUM 8.6 mg/dL (8.5-10.1); CHLORIDE 97 mmol/L (98-107); CREATININE 0.61 mg/dL (0.55-1.02)
[2018-12-04 04:57] LABS: ANION GAP 6 mmol/L (5-15)
[2018-12-04] MEDS: FUROSEMIDE 20 MG/2 ML IV SCH (07:43)
[2018-12-04] MEDS: INSULIN LISPRO 100 UNITS/ML, PEN SQ-INSULIN SCH ×4 (07:57→21:00)
[2018-12-04 08:00] VITALS: BP 123/81
[2018-12-04] MEDS: ENOXAPARIN 40 MG/0.4 ML SQ SCH ×2 (09:05→19:43)
[2018-12-04] MEDS: INSULIN GLARGINE 100 UNITS/ML, PEN SQ-INSULIN SCH ×2 (09:05→22:12)
[2018-12-04] MEDS: ACETAMINOPHEN 325 MG TABLET PO PRN (13:40)
[2018-12-04 14:00] VITALS: BP 122/76
[2018-12-04] MEDS: ALBUTEROL/IPRATROPIUM 2.5MG/0.5MG, 3 ML NPPB PRN (14:59)
[2018-12-04] MEDS: predniSONE 50MG TABLET PO SCH (19:43)
[2018-12-04 20:01] VITALS: BP 112/74
[2018-12-04] MEDS: ALBUTEROL/IPRATROPIUM 2.5MG/0.5MG, 3 ML NPPB SCH (20:43)
[2018-12-04] MEDS ORDERED: INSULIN LISPRO 100 UNIT/ML, 3ML VIAL SQ-INSULIN ONE (22:00)
[2018-12-04] MEDS: PRAVASTATIN 20 MG TABLET PO SCH (22:12)
[2018-12-04] MEDS: AZITHROMYCIN 250 MG TABLET PO SCH (22:12)
[2018-12-04] MEDS: CEFTRIAXONE PMX 2GM/50ML 50 ML IV SCH (22:38)
[2018-12-05 00:49] VITALS: BP 110/66
[2018-12-05 05:43] LABS: ANION GAP 6 mmol/L (5-15); CALCIUM 9.3 mg/dL (8.5-10.1); CHLORIDE 96 mmol/L (98-107); CREATININE 0.62 mg/dL (0.55-1.02)
[2018-12-05 05:54] LABS: BASOPHILS # (AUTO) 0.03 x10^3/uL (0-0.1); BASOPHILS % (AUTO) 0 % (0-1); EOSINOPHILS # (AUTO) 0.06 x10^3/uL (0-0.4); EOSINOPHILS % (AUTO) 1 % (1-7); LYMPHOCYTES % (AUTO) 8 % (22-44); MD NO; MEAN CORPUSCULAR HEMOGLOBIN 31.7 pg (27.0-34.8); MEAN CORPUSCULAR HGB CONC 32.8 g/dL (32.4-35.8); MEAN CORPUSCULAR VOLUME 96.7 fL (80-100); MEAN PLATELET VOLUME 8.8 fL (7.4-10.4); MONOCYTES % (AUTO) 1 % (2-9); NEUTROPHILS # (AUTO) 11.04 x10^3/uL (1.8-6.8); NEUTROPHILS % (AUTO) 90 % (42-75); PLATELET COUNT 188 x10^3/uL (130-400); RED BLOOD COUNT 5.09 x10^6/uL (3.82-5.3); RED CELL DISTRIBUTION WIDTH 14.8 % (9.6-15.2)
[2018-12-05] MEDS ORDERED: DOCUSATE 100 MG CAPSULE PO PRN (08:30)
[2018-12-05 08:45] VITALS: BP 123/78
[2018-12-05] MEDS: INSULIN LISPRO 100 UNITS/ML, PEN SQ-INSULIN SCH ×4 (08:49→22:18)
[2018-12-05] MEDS: ENOXAPARIN 40 MG/0.4 ML SQ SCH ×2 (08:50→22:18)
[2018-12-05] MEDS: ALBUTEROL/IPRATROPIUM 2.5MG/0.5MG, 3 ML NPPB SCH ×2 (09:00→21:45)
[2018-12-05] MEDS ORDERED: INSULIN GLARGINE 100 UNITS/ML, PEN SQ-INSULIN SCH (09:00)
[2018-12-05] MEDS: ACETAMINOPHEN 325 MG TABLET PO PRN ×2 (12:31→17:06)
[2018-12-05 14:00] VITALS: BP 107/66
[2018-12-05] MEDS: predniSONE 50MG TABLET PO SCH (17:06)
[2018-12-05 20:18] VITALS: BP 142/81
[2018-12-05] MEDS: CEFTRIAXONE PMX 2GM/50ML 50 ML IV SCH (22:17)
[2018-12-05] MEDS: PRAVASTATIN 20 MG TABLET PO SCH (22:17)
[2018-12-05] MEDS: AZITHROMYCIN 250 MG TABLET PO SCH (22:17)
[2018-12-05] MEDS: INSULIN GLARGINE 100 UNITS/ML, PEN SQ-INSULIN SCH (22:18)
[2018-12-06 00:18] VITALS: BP 138/87
[2018-12-06 05:29] LABS: BASOPHILS # (AUTO) 0.04 x10^3/uL (0-0.1); BASOPHILS % (AUTO) 0 % (0-1); EOSINOPHILS # (AUTO) 0.01 x10^3/uL (0-0.4); EOSINOPHILS % (AUTO) 0 % (1-7); LYMPHOCYTES # (AUTO) 1.51 x10^3/uL (1-3.4); LYMPHOCYTES % (AUTO) 10 % (22-44); MD NO; MEAN CORPUSCULAR HEMOGLOBIN 31.9 pg (27.0-34.8); MEAN CORPUSCULAR HGB CONC 33.1 g/dL (32.4-35.8); MEAN CORPUSCULAR VOLUME 96.6 fL (80-100); MEAN PLATELET VOLUME 8.6 fL (7.4-10.4); MONOCYTES # (AUTO) 0.33 x10^3/uL (0.2-0.8); MONOCYTES % (AUTO) 2 % (2-9); NEUTROPHILS # (AUTO) 12.75 x10^3/uL (1.8-6.8); NEUTROPHILS % (AUTO) 87 % (42-75); PLATELET COUNT 183 x10^3/uL (130-400); RED BLOOD COUNT 4.89 x10^6/uL (3.82-5.3)
[2018-12-06 05:41] LABS: ANION GAP 4 mmol/L (5-15); CALCIUM 9.4 mg/dL (8.5-10.1); CHLORIDE 94 mmol/L (98-107)
[2018-12-06 06:44] VITALS: BP 130/86
[2018-12-06] MEDS: ACETAMINOPHEN 325 MG TABLET PO PRN (07:51)
[2018-12-06] MEDS: INSULIN LISPRO 100 UNITS/ML, PEN SQ-INSULIN SCH ×4 (07:52→20:28)
[2018-12-06] MEDS: predniSONE 50MG TABLET PO SCH ×2 (08:37→16:46)
[2018-12-06] MEDS: ALBUTEROL/IPRATROPIUM 2.5MG/0.5MG, 3 ML NPPB SCH ×2 (09:00→21:00)
[2018-12-06] MEDS: ENOXAPARIN 40 MG/0.4 ML SQ SCH ×2 (10:13→21:51)
[2018-12-06] MEDS: INSULIN GLARGINE 100 UNITS/ML, PEN SQ-INSULIN SCH ×2 (10:14→20:28)
[2018-12-06] MEDS: GUAIFENESIN ER 600 MG TABLET PO SCH ×2 (10:22→20:27)
[2018-12-06 14:06] VITALS: BP 127/82
[2018-12-06 19:45] VITALS: BP 130/84
[2018-12-06] MEDS: AZITHROMYCIN 250 MG TABLET PO SCH (20:27)
[2018-12-06] MEDS: PRAVASTATIN 20 MG TABLET PO SCH (20:27)
[2018-12-06] MEDS: CEFTRIAXONE PMX 2GM/50ML 50 ML IV SCH (21:51)
[2018-12-07] MEDS ORDERED: INSULIN LISPRO 100 UNITS/ML, PEN SQ-INSULIN ONE (00:30)
[2018-12-07 00:51] VITALS: BP 107/66
[2018-12-07 05:15] LABS: BASOPHILS # (AUTO) 0.04 x10^3/uL (0-0.1); BASOPHILS % (AUTO) 0 % (0-1); EOSINOPHILS # (AUTO) 0.01 x10^3/uL (0-0.4); EOSINOPHILS % (AUTO) 0 % (1-7); LYMPHOCYTES # (AUTO) 1.61 x10^3/uL (1-3.4); LYMPHOCYTES % (AUTO) 11 % (22-44); MD NO; MEAN CORPUSCULAR HEMOGLOBIN 31.5 pg (27.0-34.8); MEAN CORPUSCULAR HGB CONC 32.9 g/dL (32.4-35.8); MEAN CORPUSCULAR VOLUME 95.9 fL (80-100); MONOCYTES # (AUTO) 0.41 x10^3/uL (0.2-0.8); MONOCYTES % (AUTO) 3 % (2-9); NEUTROPHILS # (AUTO) 12.37 x10^3/uL (1.8-6.8); NEUTROPHILS % (AUTO) 86 % (42-75); PLATELET COUNT 191 x10^3/uL (130-400); RED BLOOD COUNT 5.25 x10^6/uL (3.82-5.3); RED CELL DISTRIBUTION WIDTH 14.4 % (9.6-15.2)
[2018-12-07 05:26] LABS: ANION GAP 4 mmol/L (5-15); CALCIUM 9.6 mg/dL (8.5-10.1); CHLORIDE 93 mmol/L (98-107)
[2018-12-07 05:27] LABS: CREATININE 0.79 mg/dL (0.55-1.02)
[2018-12-07 06:45] VITALS: BP 120/73
[2018-12-07] MEDS: GUAIFENESIN ER 600 MG TABLET PO SCH ×2 (08:06→21:49)
[2018-12-07] MEDS: predniSONE 50MG TABLET PO SCH (08:06)
[2018-12-07] MEDS: ACETAMINOPHEN 325 MG TABLET PO PRN (08:17)
[2018-12-07] MEDS: INSULIN LISPRO 100 UNITS/ML, PEN SQ-INSULIN SCH ×4 (08:18→21:49)
[2018-12-07] MEDS: ALBUTEROL/IPRATROPIUM 2.5MG/0.5MG, 3 ML NPPB SCH ×2 (08:45→19:50)
[2018-12-07] MEDS ORDERED: INSULIN GLARGINE 100 UNITS/ML, PEN SQ-INSULIN SCH (09:00)
[2018-12-07] MEDS: ENOXAPARIN 40 MG/0.4 ML SQ SCH ×2 (09:56→21:49)
[2018-12-07] MEDS: GUAIFENESIN/COD200MG-20MG/10ML LIQUID PO PRN (10:05)
[2018-12-07] MEDS: LORATADINE 10 MG TABLET PO SCH (12:05)
[2018-12-07 13:36] VITALS: BP 123/81
[2018-12-07] MEDS: FLUTICASONE NASAL SPRAY 16GM NAS SCH (13:46)
[2018-12-07] MEDS: BENZONATATE 100 MG CAPSULE PO PRN (18:29)
[2018-12-07 21:07] VITALS: BP 118/77
[2018-12-07] MEDS: INSULIN GLARGINE 100 UNITS/ML, PEN SQ-INSULIN SCH (21:48)
[2018-12-07] MEDS: PRAVASTATIN 20 MG TABLET PO SCH (21:49)
[2018-12-07] MEDS: AZITHROMYCIN 250 MG TABLET PO SCH (21:49)
[2018-12-07] MEDS: CEFTRIAXONE PMX 2GM/50ML 50 ML IV SCH (22:41)
[2018-12-08 01:13] VITALS: BP 112/71
[2018-12-08 05:36] LABS: CHLORIDE 96 mmol/L (98-107)
[2018-12-08 05:41] LABS: ANION GAP 5 mmol/L (5-15); CALCIUM 8.7 mg/dL (8.5-10.1); CREATININE 0.65 mg/dL (0.55-1.02)
[2018-12-08] MEDS: INSULIN LISPRO 100 UNITS/ML, PEN SQ-INSULIN SCH ×4 (07:43→21:21)
[2018-12-08] MEDS: FLUTICASONE NASAL SPRAY 16GM NAS SCH (07:44)
[2018-12-08] MEDS: metFORMIN XR 500 MG TAB.ER.24H PO SCH (07:45)
[2018-12-08] MEDS: GUAIFENESIN ER 600 MG TABLET PO SCH ×2 (07:46→21:19)
[2018-12-08] MEDS: LORATADINE 10 MG TABLET PO SCH (07:46)
[2018-12-08] MEDS: ALBUTEROL/IPRATROPIUM 2.5MG/0.5MG, 3 ML NPPB SCH (09:00)
[2018-12-08 09:17] VITALS: BP 116/71
[2018-12-08] MEDS: ENOXAPARIN 40 MG/0.4 ML SQ SCH ×2 (09:21→21:21)
[2018-12-08] MEDS: INSULIN GLARGINE 100 UNITS/ML, PEN SQ-INSULIN SCH ×2 (09:21→21:20)
[2018-12-08] MEDS ORDERED: ALBUTEROL/IPRATROPIUM 2.5MG/0.5MG, 3 ML NPPB PRN (10:30)
[2018-12-08 14:06] VITALS: BP 120/73
[2018-12-08] MEDS ORDERED: LORA-247 PO (14:24)
[2018-12-08] MEDS ORDERED: GLIM4TAB2 PO (14:24)
[2018-12-08] MEDS ORDERED: ALBU6.7H8 INH ×2 (14:24)
[2018-12-08] MEDS ORDERED: GUAI600T31 PO (14:24)
[2018-12-08] MEDS ORDERED: BENZ-17 PO (14:24)
[2018-12-08] MEDS ORDERED: METF1000 PO (14:24)
[2018-12-08] MEDS ORDERED: FLUT16SP24 NAS (14:24)
[2018-12-08] MEDS: GUAIFENESIN/COD200MG-20MG/10ML LIQUID PO PRN (17:11)
[2018-12-08] MEDS: BENZONATATE 100 MG CAPSULE PO PRN (17:12)
[2018-12-08 19:29] VITALS: BP 115/75
[2018-12-08] MEDS: AZITHROMYCIN 250 MG TABLET PO SCH (21:19)
[2018-12-08] MEDS: PRAVASTATIN 20 MG TABLET PO SCH (21:19)
[2018-12-08] MEDS: CEFTRIAXONE PMX 2GM/50ML 50 ML IV SCH (21:21)
[2018-12-09 01:32] VITALS: BP 112/72
[2018-12-09] MEDS: FLUTICASONE NASAL SPRAY 16GM NAS SCH (05:33)
[2018-12-09] MEDS: GUAIFENESIN/COD200MG-20MG/10ML LIQUID PO PRN (05:33)
[2018-12-09] MEDS: BENZONATATE 100 MG CAPSULE PO PRN (05:33)
[2018-12-09] MEDS: GUAIFENESIN ER 600 MG TABLET PO SCH (07:47)
[2018-12-09] MEDS: metFORMIN XR 500 MG TAB.ER.24H PO SCH (07:47)
[2018-12-09] MEDS: LORATADINE 10 MG TABLET PO SCH (07:47)
[2018-12-09] MEDS: INSULIN LISPRO 100 UNITS/ML, PEN SQ-INSULIN SCH ×3 (07:48→16:13)
[2018-12-09] MEDS: INSULIN GLARGINE 100 UNITS/ML, PEN SQ-INSULIN SCH (07:49)
[2018-12-09 08:00] VITALS: BP 111/76
[2018-12-09] MEDS: ENOXAPARIN 40 MG/0.4 ML SQ SCH (09:51)
[2018-12-09 13:34] VITALS: BP 149/90
[2018-12-10] MEDS ORDERED: ALBU90AE INH (10:04)
== END 2018-12-09 16:30 | disposition home or self-care (01) | DRG 871 ==
LOC: ED 19:36 → 3N 20:11
PROVIDERS: ADMIT Family Medicine; ATTEND Family Medicine
DX: A41.9 Sepsis, unspecified organism (principal); I50.33 Acute on chronic diastolic (congestive) heart failure; J18.9 Pneumonia, unspecified organism; J96.01 Acute respiratory failure with hypoxia; E87.1 Hypo-osmolality and hyponatremia; J44.0 Chronic obstructive pulmonary disease with (acute) lower respiratory infection; J44.1 Chronic obstructive pulmonary disease with (acute) exacerbation; E11.65 Type 2 diabetes mellitus with hyperglycemia; E78.5 Hyperlipidemia, unspecified; T38.0X5A Adverse effect of glucocorticoids and synthetic analogues, initial encounter; Z72.0 Tobacco use; Z91.14 Patient's other noncompliance with medication regimen; R65.20 Severe sepsis without septic shock
CPT/HCPCS: 36415; 84145; 96374; 99291; J7620; 0399T; 71045; 71046; 80048; 80053; 82947; 82962; 83036; 83605; 83880; 84439; 84443; 84484; 85025; 87040; 87070; 87205; 93005; 93306; 94640; G0378; J0696; J1650; J3370; J1815; J1940; J2930; J3490; J7040; J7512

== ENCOUNTER → 2019-05-06 | Outpatient (CLI) | payer OTHER ==
[~2019-05-06] MED LIST changes: +ALBU6.7H8 INH; +ALBU90AE INH; +BENZ-17 PO; +FLUT16SP24 NAS; -GLIM2TAB2 PO; +GLIM2TAB7 PO; -GLIM4TAB2 PO; +GLIM4TAB8 PO; +LORA-247 PO; +MONT10TA11 PO; -MONT10TA9 PO
== END | disposition home or self-care (01) ==
LOC: CFH 10:20
PROVIDERS: ATTEND Registered Nurse
DX: J84.10 Pulmonary fibrosis, unspecified (principal); I25.10 Atherosclerotic heart disease of native coronary artery without angina pectoris; F17.210 Nicotine dependence, cigarettes, uncomplicated
CPT/HCPCS: G0297

== ENCOUNTER → 2019-05-24 | Outpatient (CLI) | payer OTHER | END | disposition home or self-care (01) | LOC: CVU 15:32 | PROVIDERS: ATTEND Registered Nurse | DX: I51.7 Cardiomegaly (principal); E78.5 Hyperlipidemia, unspecified; E11.9 Type 2 diabetes mellitus without complications; Z72.0 Tobacco use | CPT/HCPCS: 93306 ==

== ENCOUNTER → 2019-10-05 | Outpatient (CLI) | payer OTHER ==
[~2019-10-05] MED LIST changes: +REGADENOSON 0.4 MG/5 ML SYRINGE ONE
== END | disposition home or self-care (01) ==
LOC: CFH 07:56
PROVIDERS: ATTEND Internal Medicine Cardiovascular Disease
DX: R06.02 Shortness of breath (principal); I27.9 Pulmonary heart disease, unspecified
CPT/HCPCS: 78452; 93017; A9502; J2785

== ENCOUNTER → 2020-05-19 | Outpatient (CLI) | payer OTHER ==
[~2020-05-19] MED LIST changes: -MONT10TA11 PO; +MONT10TA17 PO; -OXYC-307 PO; +OXYC-380 PO; -REGADENOSON 0.4 MG/5 ML SYRINGE ONE
== END | disposition home or self-care (01) ==
LOC: CFH 14:52
PROVIDERS: ATTEND Registered Nurse
DX: Z12.2 Encounter for screening for malignant neoplasm of respiratory organs (principal); J98.4 Other disorders of lung; Z87.891 Personal history of nicotine dependence; Z90.49 Acquired absence of other specified parts of digestive tract
CPT/HCPCS: 71271

== ENCOUNTER 2020-08-09 15:08 | Emergency (ER) | payer OTHER ==
[~2020-08-09] VITALS: Ht 162.6 cm; Wt 115.0 kg
--- NOTE | 2020-08-09 16:00 | NUR ---
PT PRESENTS TO ED WITH C/O INTERMITTENT NUMBNESS TO BILATERAL FEET STARTING LAST NIGHT. NUMBNESS TO L FOOT EXTENDING TO L KNEE. BLE WEAKNESS AND SLIGHT NUMBNESS TO TOES OF R FOOT TODAY. ALSO L SIDED LOW BACK PAIN. CMS INTACT, +2 PEDAL PULSE BILATERALLY. PT A&O, RESPS EVEN AND UNLABORED, VSS, NADN.
[2020-08-09 16:32] LABS: BASOPHILS % (AUTO) 1 % (0-1); EOSINOPHILS % (AUTO) 1 % (1-7); LYMPHOCYTES % (AUTO) 23 % (22-44); MD NO; MEAN CORPUSCULAR HEMOGLOBIN 31.6 pg (27.0-34.8); MEAN PLATELET VOLUME 8.8 fL (7.4-10.4); MONOCYTES % (AUTO) 5 % (2-9); NEUTROPHILS % (AUTO) 70 % (42-75); PLATELET COUNT 177 x10^3/uL (130-400)
[2020-08-09 16:43] LABS: ANION GAP 6 mmol/L (5-15); CALCIUM 9.1 mg/dL (8.5-10.1); CHLORIDE 105 mmol/L (98-107)
[2020-08-09 16:54] LABS: ALANINE AMINOTRANSFERASE 49 U/L (12-78); ALKALINE PHOSPHATASE 109 U/L (45-117); BILIRUBIN,TOTAL 0.4 mg/dL (0.2-1.0); CREATININE 0.61 mg/dL (0.55-1.02); TOTAL PROTEIN 6.7 g/dL (6.4-8.2)
--- NOTE | 2020-08-09 17:12 | NUR ---
PT TO MRI
[2020-08-09 17:42] VITALS: BP 135/92
--- NOTE | 2020-08-09 17:42 | NUR ---
PT BACK FROM MRI. PT A&O, VSS, RESPS EVEN AND UNLABORED, NADN.
--- NOTE | 2020-08-09 17:44 | NUR ---
PRAVEEN SAHM AT BEDSIDE TO DISCUSS MRI RESULTS AND POC.
--- NOTE | 2020-08-09 17:54 | NUR ---
PRECEPTOR RN NOTE: EDMD SAHM NOTIFIED PT MEETS SIRS CRITERIA OF ELEVATED WBC, TACHYCARDIA >90BPM, AND FEVER ON TRIAGE. PER EDMD SAHM, PT NOT SEPTIC, NO SOURCE OF SEPSIS.
== END 2020-08-09 18:24 | disposition home or self-care (01) ==
LOC: ED 18:15
DX: M54.16 Radiculopathy, lumbar region (principal); M51.24 Other intervertebral disc displacement, thoracic region; E11.9 Type 2 diabetes mellitus without complications
CPT/HCPCS: 36415; 72148; 80053; 83735; 85025; 99284

== ENCOUNTER → 2020-08-31 | Outpatient (CLI) | payer OTHER | END | disposition home or self-care (01) | LOC: CFH 09:28 | PROVIDERS: ATTEND Physician Assistant | DX: Z12.31 Encounter for screening mammogram for malignant neoplasm of breast (principal) | CPT/HCPCS: 77063; 77067 ==

== ENCOUNTER → 2020-10-13 | Outpatient (CLI) | payer OTHER | END | disposition home or self-care (01) | LOC: CVU 13:33 | PROVIDERS: ATTEND Registered Nurse | DX: G47.33 Obstructive sleep apnea (adult) (pediatric) (principal) | CPT/HCPCS: 93306 ==